=== PATIENT | female | born 1985 | race Caucasian/White ===

== ENCOUNTER 2021-01-10 16:07 | Emergency (ER) | payer OTHER ==
[~2021-01-10] VITALS: Ht 154.9 cm; Wt 56.7 kg
== END 2021-01-10 20:38 | disposition home or self-care (01) ==
LOC: ER 16:07
DX: S90.01XA Contusion of right ankle, initial encounter (principal); X58.XXXA Exposure to other specified factors, initial encounter; Y93.89 Activity, other specified; Y92.9 Unspecified place or not applicable